=== PATIENT | female | born 1930 | race Two or more races ===

== ENCOUNTER 2021-01-15 10:49 | Emergency (ER) | payer OTHER ==
[~2021-01-15] VITALS: Ht 144.8 cm; Wt 45.4 kg
[2021-01-15] MEDS ORDERED: PLAVIX75 MG (10:57)
[2021-01-15] MEDS ORDERED: COZAAR25 MG (10:58)
[2021-01-15] MEDS ORDERED: FENOFIBRATE150 MG (10:59)
[2021-01-15] MEDS ORDERED: ARICEPT10 MG (10:59)
[2021-01-15] MEDS ORDERED: SYNTHROID88 MCG (10:59)
[2021-01-15] MEDS ORDERED: AVAPRO150 MG (10:59)
[2021-01-15] MEDS ORDERED: ZOLOFT50 MG (10:59)
[2021-01-15] MEDS ORDERED: PROTONIX20 MG (11:00)
[2021-01-15] MEDS ORDERED: DICLOFENAC POTA50 MG PO (16:19)
[2021-01-15] MEDS ORDERED: ORPHENADRINE C100 MG PO (16:19)
== END 2021-01-15 16:41 | disposition home or self-care (01) ==
LOC: ER 10:49
DX: S13.8XXA Sprain of joints and ligaments of other parts of neck, initial encounter (principal); S70.02XA Contusion of left hip, initial encounter; S20.212A Contusion of left front wall of thorax, initial encounter; S00.03XA Contusion of scalp, initial encounter; W18.09XA Striking against other object with subsequent fall, initial encounter; Y93.01 Activity, walking, marching and hiking; Y92.018 Other place in single-family (private) house as the place of occurrence of the external cause; Y99.8 Other external cause status

== ENCOUNTER 2021-07-04 10:30 | Emergency (ER) | payer OTHER ==
[~2021-07-04] VITALS: Ht 152.4 cm; Wt 56.7 kg
[~2021-07-04 10:30] MED LIST: ARICEPT10 MG; AVAPRO150 MG; COZAAR25 MG; DICLOFENAC POTA50 MG PO; FENOFIBRATE150 MG; ORPHENADRINE C100 MG PO; PLAVIX75 MG; PROTONIX20 MG; SYNTHROID88 MCG; ZOLOFT50 MG
== END 2021-07-04 13:17 | disposition home or self-care (01) ==
LOC: ER 10:30
DX: S01.512A Laceration without foreign body of oral cavity, initial encounter (principal); S01.112A Laceration without foreign body of left eyelid and periocular area, initial encounter; S39.91XA Unspecified injury of abdomen, initial encounter; W06.XXXA Fall from bed, initial encounter; Y93.9 Activity, unspecified; Y92.013 Bedroom of single-family (private) house as the place of occurrence of the external cause; Y99.9 Unspecified external cause status